=== PATIENT | female | born 1990 | race Caucasian/White ===

== ENCOUNTER 2017-07-16 07:26 | Observation (INO) | payer OTHER ==
--- NOTE | 2017-07-15 21:28 | PDGENHP ---
History and Physical - Chief Complaint Right hip pain - History of Present Illness 1. ~~Bilateral~Hip Dyplasia RIGHT SIDE SYMPTOMATIC 2. ~~Bilateral~Femoroacetabular impingement (PATRICK) Cam type, with~resultant labral tear 3. ~~Profound weakness (+partial tearing &~GT bursitis) of Right Gluteus Medius and Right hamstring 4. Hyperlaxity HISTORY OF PRESENT ILLNESS: Mariis a 27 y.o.~very ~active female~who I have had the pleasure to consult on today. I have enjoyed meeting her. She~lives in [place]. ~Mari works in retail. ~She~has a partner; she~has no~children. ~Marienjoys weight lifting, yoga, running, and hiking. Natalies right~hip pain~started with an injury in March 2014, slipping on ice while hiking~with no~recalled trauma or injury, and with no~previous complaints. Maridoes not have~a known history of hip dysplasia. She was referred by Dr. Anne. Presentation today is of anterior, lateral right~hip pain. ~The hip does not~ wake her~at night and does~click and catch on her. Sitting can be uncomfortable~ for her. Maridoes~report suffering from lower back pain episodes. Marihas~participated in physical therapy and has~tried other conservative measures including chiropractic treatments and massage therapy. She~has not~ received sufficient symptomatic improvement. Marihas~utilized medication for pain management, including NSAID. Mari has used medication for since the pain began. Maridenies issues with the left~hip. ~ Mariunderstands that she~has a hip and pelvis problem which should be researched and wishes to get a better understanding of her~hip status, followed by an establishment of a treatment strategy, hoping she~would be able to get back to her~well being active life. History: Past medical history: ~ Patient has depression Relevant familial history: Father with OA Past surgical history: None Marihas never received general anesthesia. I have reviewed, verified and agree with the past medical, surgical, family and social history. Current Medications:~has a current medication list which includes the following prescription(s): fluoxetine and danilo. ALLERGIES:~is allergic to codeine. Objective: Physical Examination: Mariis 5~feet 0~inches tall and weighs 120~Lbs. Mariis AAO x3; she~is well-nourished, in NAD. Skin is warm and dry. ~Breathing is non-labored. ~CV with RRR by pulse. Abdomen is soft, NTND. Currently, she~walks with a normal~gait. Trendelenburg sign is negative~and proprioception is reduced, right~side. She~presents with severe~signs of joint laxity. Beightons Score: 8 Lower spine examination is negative~for sciatic or femoral nerve irritation with negative~SLR &~femoral stretch tests. Range of motion of the spine is normal~for flexion, extension, and rotations, with no~associated pain. Strength, Sensation and pulses are normal - bilaterally Ankles and knees exams are normal~and no~mal-alignment is evident. She~has no leg length discrepancy. Thigh circumference is symmetric~with no evidence for muscle atrophy~on both~ sides. Hip ROM (degrees): FL ER At 90~hip FL IR At 90~hip FL AB AD EX IR Neutral hip ER Neutral hip R 130 45 55 50 15 20 60 35 L 120 50 40 45 5 20 55 30 Specific hip and pelvis tests: Impingement Test KIMBERLYN Roll Add. Longus R +++ +++ Negative Negative L Negative Negative Negative Negative Glut. Med ITB Posterior Imp R +++ 4+/5 strength Negative 4+/5 strength Negative L Negative 5/5 strength Negative 5/5 strength Negative Squeeze test measured normal Bony Symphysis pubis is pain free~to touch while concentric activity of the rectus abdominis, does not~produce pain at its insertion. Ilio Psos specific tests are negative for pain during cycling for both hips~and no snap. HF has weakness no pain the right hip. Posterior~capsule tenderness RIGHT SIDE Greater trochanteric burse is pain free~on both hips. Piriformis tests: FAIR is Postive, with no~local signs of neuritis related to sciatic nerve. SIJs examination is produces pain on right side~with normal~KIMBERLYN in relation and local tenderness. Hamstrings tests are negative~functional contraction and negative~tendinopathy both hips. On a daily basis, the following percentages reflect Ethel's overall total pain: Deep hip: 70% Piriformis/posterior capsule: 30% Imaging: Radiology studies which I have personally reviewed, analyzed and measured are below: XR: AP of the hip and pelvis: Performed in a good~technique Coccyx to pubic symphysis distance 1.3~cm. 7~degrees cephal [place] Lines are preserved. Minimal~Pathological signs are seen in the Symphysis Pubis. Minimal~Pathological signs are seen at the Ischial tuberosity. ~ Specific measurements show: NSA~ LCE Sourcil~Angle Sharp's angle Lat. Cam Lat. Pincer C.Over~sign Head~Coverage % ATDmm R N 19 4 46 + - 12:30-1 74 N L N 26 7 44 + - - 70 N Pos. wall sign ISS NAD ~~Dysplasia Comments R Negative Negative 16~mm ++ L Negative Negative 23.6~mm ++ Sclerosis Sup. Lat. OA Cysts Joint Space-WBZ Joint Space-Medial R Negative Negative Negative 3.4~mm 2.9~mm L Negative Negative Negative 3.9~mm 3.2~mm X Table lateral: Anterior cam lesion is seen~on both hips. Alpha Angle: ~ Right 51~dergrees Left 55~degrees MRI shows: good cartilage coverage, labral tear. ~Right Greater trochanter bursitis with partial tearing of glut's insertion. Impression and plan: Mariis a 27 y.o.~active female~suffering from symptomatic Right~hip pain due to Right~Hip Dyplasia, Right~Femoroacetabular impingement (PATRICK) Cam type, with~resultant labral tear~causing significant disability to her~and altering her~sport and life activities. Physical examination, imaging, and her~story correspond with the diagnosis mentioned above. I explained that hip dysplasia is a condition wherein the hip joint has excessive play~and instability due to a variety of factors, including the depth and adequacy of the socket, the orientation of the femur bone, and ligament laxity around the hip joint. Dysplasia ranges in severity from borderline to darin, with treatment options being specific to the specific nature of the problem. Left untreated, the instability in the hip joint can cause progressive tearing of the labrum and deterioration of the surface cartilage, ultimately resulting in progressive osteoarthritis of the hip. I explained that femoroacetabular impingement (PATRICK - Cam type) arises due to a bony or soft tissue conflict between the femur (ball) and acetabulum (socket) caused by an abnormality in the shape of the femoral head and neck. Over time, repetitive impingement can result in damage to the labrum and adjacent surface cartilage within the socket, ultimately giving rise to progressive osteoarthritis of the hip. I explained that although a labral tear can be a source of pain, it is rarely the root of the problem and typically occurs secondary to an underlying abnormality in the shape and mechanics of the hip joint. I reviewed conservative treatment options for Dysplasia and PATRICK including activity modification to avoid positions of impingement or instability, physical therapy, non-steroidal anti-inflammatory medications, and various injections (corticosteroid and PRP) aimed at reducing inflammation in the hip joint or/and preventing dynamic instability and impingement. PRP injections may promote healing and reduce symptoms in certain cases but it will not repair chronically damaged tissue. Although these measures may help to buy time~and reduce current level of symptoms, they are not a definitive solution to the problem given the underlying abnormality in the shape of the hip joint. Patients who have failed conservative management and continue to experience symptoms are candidates for definitive surgical treatment, which may consist of hip arthroscopy alone or in combination with more invasive bony realignment procedures of the hip socket and/or femur called periacetabular osteotomy (MELODY) or derotational femoral osteotomy (DFO). Hip arthroscopy typically includes treating the labrum with either repair or reconstruction of the torn labrum; as well as addressing the underlying abnormalities by restoring the normal shape to the hip joint. If the cartilage is damaged a Microfracture surgical procedure may also be necessary to help stimulate the growth of fibrocartilage. If a patient requires a labral reconstruction or a Microfracture, the initial rehabilitation from the surgery may take longer, but the fci results are typically favorable. I reviewed the technical aspects of periacetabular osteotomy (MELODY) including risks, benefits, and expected course of recovery. Ethel~understands that MELODY is an inpatient procedure carried out through two medium sized incisions on the front and back of the hip joint. The hip socket is cut, realigned, and stabilized with 2 3 internal screws. Risks include infection, bleeding, injury to nearby nerves or vessels, stiffness, persistent pain, instability, failure of bony healing, implant related complications, and venous thromboembolic disease. Rarely, revision surgery may be required to address these problems. Risks, potential complications, side effects and recovery from surgical procedure were discussed in length. We explained how this surgery is an open procedure, and though patients tend to do well in the long-term, it involves significant pain in the first 2-4 weeks post-op and a rather lengthy rehab.~Overall recovery takes approximately 6 12~months depending on the extent of damage and degree of repair. Mariunderstands that she~will undergo hip arthroscopy 1 week prior to the MELODY to address damage inside the hip joint. Mariunderstands that hip arthroscopy and MELODY are two separate procedures that are best performed one week apart, with the arthroscopy commencing first to "tighten up" any pathology evident in the hip joint (labral repair, etc.) and the MELODY open procedure occurring 7-10 days later to realign the acetabulum. Prior to surgical intervention we will refer Ethel to Physical Therapy to strengthen the muscle envelope surrounding her hip joint. Mariwill review the info presented. In order to obtain more detailed information regarding the alignment, orientation, and shape of the bony hip and pelvis I will order a CT scan to be performed. The results of the CT scan, including femoral torsion and acetabular version measured values and 3D images, will aid me in deciding on the best treatment strategy and surgical pre-planning. Mariwill contact us if she~wishes to pursue further treatment in the future. Mariis happy with this plan. I have also supplied her~with handouts, outlining the expected surgical treatment and rehab involved. I wish~Mariall the best, ~~ Jonathan Yu PAC History Information - Allergies/Home Medication List Allergies/Adverse Reactions: alcohol Allergy (Verified 06/25/17 12:05) Other-Enter Comments codeine Allergy (Verified 06/25/17 12:05) Itching Home Medications: Multivitamins 06/25/17 [Last Taken Unknown] Prozac 10 MG (*) 06/25/17 [Last Taken Unknown] I have personally reviewed and updated: medical history - Social History Smoking Status: Former smoker Review of Systems Review of Systems: Physical Exam Physical Exam:
[2017-07-16] MEDS ORDERED: ACETAMINOPHEN 500 MG TAB PO ONE (07:37)
[2017-07-16] MEDS ORDERED: PREGABALIN 150 MG CAP PO ONE (07:37)
[2017-07-16] MEDS ORDERED: LR 1,000 ML IV ONE (07:38)
[2017-07-16] MEDS ORDERED: ceFAZolin 2 GM/DEXTROSE 100 ML IV ONE (07:45)
[2017-07-16 08:43] LABS: CREATINE KINASE 51 IU/L (0-156)
[2017-07-16] MEDS ORDERED: EPINEPHrine 30 MG/30 ML MDV (0.1 MG/0.1 ML) ONE (10:39)
[2017-07-16] MEDS ORDERED: BUPIVACAINE/EPI 0.5% 30 ML SDV ONE (10:39)
[2017-07-16] MEDS ORDERED: MIDAZOLAM 2 MG/2 ML VIAL IVP ONE (11:06)
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
[2017-07-16] MEDS ORDERED: PROPOFOL/EMULSION 500 MG/50 ML BOTTLE IV ONE (11:08)
[2017-07-16] MEDS ORDERED: fentaNYL 100 MCG/2 ML INJ ONE ×2 (11:08→15:18)
[2017-07-16] MEDS ORDERED: REMIFENTANIL HCL 1 MG VIAL ONE (11:08)
[2017-07-16] MEDS ORDERED: DEXAMETHASONE 4 MG/ML VIAL ONE (11:16)
[2017-07-16] MEDS ORDERED: ROCURONIUM 50 MG/5 ML VIAL ONE (11:16)
[2017-07-16] MEDS ORDERED: ONDANSETRON 4 MG/2 ML VIAL ONE (11:16)
[2017-07-16] MEDS ORDERED: LIDOCAINE 2% 5 ML SDV ONE (11:17)
[2017-07-16] MEDS ORDERED: PROPOFOL 200 MG/20 ML VIAL ONE (13:36)
[2017-07-16] MEDS ORDERED: HYDROCODONE/APAP 5/325 TAB PO PRN (14:29)
[2017-07-16] MEDS ORDERED: PROMETHAZINE HCL 25 MG/ML INJ IVP PRN ×2 (14:29→19:28)
[2017-07-16] MEDS ORDERED: HYDROmorphONE/DILAUDID 1 MG/ML INJ IVP PRN ×2 (14:29→19:28)
[2017-07-16] MEDS ORDERED: ONDANSETRON 4 MG/2 ML VIAL IVP PRN ×2 (14:29→19:28)
[2017-07-16] MEDS ORDERED: ACETAMINOPHEN 500 MG TAB PO PRN (14:29)
[2017-07-16] MEDS ORDERED: LR 500 ML IV PRN (14:29)
[2017-07-16] MEDS ORDERED: NALOXONE HCL 0.4 MG/ML INJ IVP PRN (14:29)
[2017-07-16] MEDS ORDERED: oxyCODONE IR 5 MG TAB PO PRN ×2 (14:29→19:28)
[2017-07-16] MEDS ORDERED: ALBUTEROL 3 ML DEYVIAL IH PRN (14:29)
--- NOTE | 2017-07-16 14:31 | POSTANESTH ---
Post Anesthetic Evaluation Cardiovascular Status: Normal, Stable Respiratory Status: Normal, Stable Level of Consciousness/Mental Status: Can Participate in Eval, Alert and Oriented Pain Control: Adequate, Prn Tx Ordered Nausea/Vomiting Control: Adequate, Prn Tx Ordered Complications Possibly Related to Anesthesia: None Noted (mild angioedema of lips and tongue, improved with benadryl, methylprednisolone, ranitidine. no respiratory sx)
[2017-07-16] MEDS ORDERED: HYDROmorphONE/DILAUDID 1 MG/ML INJ ONE (15:18)
[2017-07-16] MEDS: fentaNYL 100 MCG/2 ML INJ IVP PRN ×2 (15:20→15:44)
[2017-07-16] MEDS ORDERED: methylPREDNISolone SOD SUCC 125 MG/2 ML VIAL ONE (16:15)
[2017-07-16] MEDS ORDERED: methylPREDNISolone SOD SUCC 125 MG/2 ML VIAL IVP ONE (16:15)
[2017-07-16] MEDS ORDERED: RANITIDINE 50 MG/2 ML VIAL IVP ONE (16:30)
[2017-07-16] MEDS ORDERED: ONDANSETRON DISINTEGRATING 4 MG TAB PO PRN (19:28)
[2017-07-16 23:35] VITALS: BP 103/58
[2017-07-17] MEDS ORDERED: methylPREDNISolone SOD SUCC 125 MG/2 ML VIAL ONE (16:05)
--- NOTE | 2017-07-17 22:31 | ASMTCMCOM ---
CM Note CM Note Notes: Pt medically stable, no CM d/c needs identified. Date Signed: 07/17/2017 03:28 PM Electronically Signed By:CHRIS Grady
--- NOTE | 2017-07-18 08:24 | GDS ---
[f rep st] DISCHARGE SUMMARY DISCHARGE DIAGNOSES: 1. Hip arthroscopy femoroplasty with labral tear. 2. Medication allergic reaction. 3. Depression. HISTORY OF PRESENT ILLNESS: This is a 27-year-old female with bilateral hip dysplasia with femoroacetabular impingement with labral tear, who under went surgery on 07/16. The hospitalist service was consulted secondary to tongue and mouth swelling after coming out of anesthesia. She did describe some scratchy throat. At that time, she was dosed Benadryl and Solu-Medrol with resolution of symptoms. HOSPITAL COURSE BY PROBLEM: 1. Bilateral hip dysplasia, labrum tear: Status post surgery per Orthopedics. She is to follow up with them next week. 2. Allergic reaction: unclear specifically what medication caused since dosed several premedications prior to surgery including Celebrex, Lyrica, Versed, Ancef. Has not had reaction to Percocet or Advil previously. Denies allergies to antibiotics. Lyrica has 3% risk of facial swelling. Her symptoms did recur morning of discharge; including tongue tingling and swelling. No air compromise or stridor. I had a lengthy conversation with her stating uncertain if will recur at home. Prescribed Benadryl and couple doses of prednisone. She lives close to [facility] and is comfortable with following up with them if it reoccurs. DISPOSITION: The patient is stable for discharge home with her boyfriend. NEW MEDICATIONS: 1. Prednisone 40 mg x2. 2. Benadryl 25-50 mg p.r.n. PHYSICAL EXAM: VITAL SIGNS: Temperature 37.2, blood pressure was 100s over 50s , respirations 16, heart rate 70, 94% on room air. GENERAL: She is well appearing. HEENT: PERRLA. She had mild tongue swelling. No air compromise. No stridor. LUNGS: Clear. No wheezing. HEART: Regular rate and rhythm. ABDOMEN: Soft, nontender, nondistended. Positive bowel sounds. : No Caceres. MUSCULOSKELETAL: 5/5 upper and lower extremity strength. NEUROLOGIC: 2 through 12 intact. PSYCH: Alert and oriented x3. FOLLOWUP: 1. Orthopedist. 2. She was given strict return precautions if recurred swelling, shortness of breath or wheezing. /[id number]/MODL MTDD
== END 2017-07-17 16:30 | disposition home or self-care (01) ==
LOC: FSGY 07:26 → F3N 19:30
PROVIDERS: ADMIT Orthopaedic Surgery Sports Medicine; ATTEND Internal Medicine
PROC: BQ101ZZ Fluoroscopy of Right Hip using Low Osmolar Contrast (ICD-10-PCS; 2017-07-16)
PROC: 0SQ94ZZ Repair Right Hip Joint, Percutaneous Endoscopic Approach (ICD-10-PCS; principal; 2017-07-16 11:30)
PROC: 0SB94ZZ Excision of Right Hip Joint, Percutaneous Endoscopic Approach (ICD-10-PCS; principal; 2017-07-16 11:30)
DX: T78.40XA Allergy, unspecified, initial encounter (principal); M25.851 Other specified joint disorders, right hip; M65.88 Other synovitis and tenosynovitis, other site; Q65.89 Other specified congenital deformities of hip; F32.9 Major depressive disorder, single episode, unspecified; Z87.891 Personal history of nicotine dependence
CPT/HCPCS: 29914; 29916; 76001; G0378; C1713; J0171; J0690; J1100; J1170; J2250; J2405; J2704; J2780; J2930; J3010

== ENCOUNTER 2018-04-09 05:36 | Day surgery (SDC) | payer MEDICAID, OTHER | END 2018-04-09 10:56 | disposition home or self-care (01) | LOC: FSGY 05:36 ==